=== PATIENT | male | born 1995 | race Caucasian/White ===

== ENCOUNTER 2022-01-21 04:08 | Emergency (ER) | payer SELFPAY ==
[2022-01-21 04:25] VITALS: BP 123/75; PULSE 84; RESP 22; TEMP 36.4; O2SAT 98; BMI 19.7
--- NOTE | 2022-01-21 04:44 | CRLHL7_ITS ---
For Patients: As a result of the Century Cures Act, medical imaging exams and procedure reports are released immediately into your electronic medical record. You may view this report before your referring provider. If you have questions, please contact your health care provider. INDICATION: RLQ pain TECHNIQUE: CT abdomen and pelvis without contrast COMPARISON: None. FINDINGS: Kidney/ureters: Kidneys are normal in caliber. No kidney or ureteral stones and no hydronephrosis. No sign of perinephric inflammation. Ureters are normal in caliber. The bladder is decompressed. Liver/gallbladder/bile ducts: The liver is normal in size, shape and attenuation. Gallbladder is normal without visualized stones or inflammation. No biliary dilatation. Spleen/pancreas/adrenal glands: The spleen, adrenal glands and pancreas are within normal limits. GI tract: No evidence of bowel obstruction. Large volume fecal retention throughout the colon most notably within the cecum and ascending colon. Suspected appendix appears nondistended and air-filled without adjacent inflammation to suggest acute appendicitis. Intraluminal hyperdensity which may represent an appendicolith. Abdominal wall/omentum/peritoneum: No free air or significant free fluid. No mass or inflammation. Lymph nodes: Mildly prominent mesenteric lymph nodes are nonspecific and may be reactive. Pelvis: Unremarkable pelvis. Lower chest: Unremarkable. IMPRESSION: Suspected appendix appears nondistended and air-filled without adjacent inflammation to suggest acute appendicitis. Intraluminal hyperdensity which may represent an appendicolith. No definite evidence for acute intra-abdominal process given limitations of lack of contrast enhancement. Large volume fecal retention throughout the colon most notably within the cecum and ascending colon. Mildly prominent mesenteric lymph nodes are nonspecific and may be reactive. Please note that all CT scans at this facility use dose modulation, iterative reconstruction, and/or weight-based dosing when appropriate to reduce radiation dose to as low as reasonably achievable. Dictated by Everardo Cruz MD @ 01/21/2022 6:04:10 AM (Electronically Signed)
[2022-01-21 05:23] LABS: Basophils Absolute Auto 0.01 K/uL (0.00-0.30); Basophils Percent Auto 0.1 % (0.0-3.0); Eosinophils Absolute Auto 0.19 K/uL (0.00-0.50); Eosinophils Percent Auto 1.9 % (0.0-7.0); Hematocrit 42.7 % (37.0-53.0); Hemoglobin* 14.4 gm/dL (13.5-17.5); Immature Granulocytes Abs Auto 0.01 K/uL (0.00-0.30); Immature Granulocytes Pct Auto 0.1 %; Mean Corpuscular HGB Conc 34 gm/dL (32-36); Mean Corpuscular Hemoglobin 29 pg (26-34); Mean Corpuscular Volume 87 fL (80-100); Neutrophils Percent Auto 77.9 % (42.0-72.0); Platelet Count* 204 K/uL (140-440); RDW Coefficient of Variation % 12.4 % (11.5-15.5); Red Blood Count 4.89 m/uL (4.30-5.90); White Blood Count* 9.86 K/uL (4.50-11.00)
[2022-01-21 05:25] LABS: Slide Review Reflex No
[2022-01-21 05:37] LABS: Albumin* 4.5 g/dL (3.3-5.0); Chloride* 104 mmol/L (96-114); Sodium* 140 mmol/L (135-149)
[2022-01-21 05:38] LABS: Potassium* 3.9 mmol/L (3.6-5.1)
[2022-01-21 05:40] LABS: Alanine Aminotransferase* 22 U/L (4-50); Alkaline Phosphatase* 69 U/L (40-150); Aspartate Amino Transferase* 23 U/L (12-35); Bilirubin Direct* 0.1 mg/dL (0.0-0.5); Bilirubin Total* 0.4 mg/dL (0.1-1.5); Blood Urea Nitrogen* 20 mg/dL (5-24); Carbon Dioxide* 30 mmol/L (20-32); Est. Creatinine Clearance* 105.96; Estimated Glomerular Filt Rate 108 ml/min; Glucose* 102 mg/dL (60-115); Total Protein* 6.9 g/dL (6.0-8.3)
[2022-01-21 05:41] LABS: Calcium* 8.9 mg/dL (8.4-10.6)
--- NOTE | 2022-01-21 06:14 | ED_ITS ---
HPI - General Adult General Date Seen: 01/21/22 Chief complaint: Abdominal Pain Stated complaint: intense abdomen pain/lower right Time Seen by Provider: 01/21/22 04:15 Source: patient and family Mode of arrival: ambulatory Limitations: no limitations History of Present Illness HPI narrative: Patient is a 26-year-old male who was in his usual state of good health when he went to bed last evening. He woke from sleep at around 4:00 a.m. in the morning with right lower quadrant abdominal pain. He describes this as a sharp pain. He ate at [employer] yesterday but has not had any acid reflux. There has been no fevers or chills. He did have what he refers to as the largest bowel movement of his life yesterday. Does not take any medications regularly. He has not taken anything for the pain since a came on. He did vomit once on the side of the road as they were driving in. Feels somewhat better after that. Related Data Home Medications Medication Instructions Recorded Confirmed No Known Home Medications 01/21/22 01/21/22 Allergies Allergy/AdvReac Type Severity Reaction Status Date / Time No Known Drug Allergies Allergy Verified 01/21/22 04:31 Review of Systems Narrative: Review of systems is as outlined above otherwise noted to be negative. [facility] Medical History (Updated 01/21/22 @ 06:08 by Emiliano Vickers MD) Patient denies medical problems Social History Smoking Status: Never smoker Do you use any of these nicotine containing products: None Second hand tobacco smoke exposure: No How often do you have a drink containing alcohol: never AUDIT-C Alcohol total score: 0 Non-prescribed substance use: denies use service: No Exam Narrative: Exam Narrative: Vitals noted. HEENT: Conjunctiva clear. Tympanic membranes are pearly white bilaterally. Posterior pharynx is clear without erythema or exudate. Neck is supple without adenopathy, thyromegaly, carotid bruit. Lungs: Clear to auscultation in all jean. No wheezes, rales, rhonchi. Heart: Regular rate and rhythm without murmur. Abdomen: Soft with normal bowel sounds. No palpable masses or organomegaly. He has some intermittent tenderness in the right lower quadrant and right flank. No guarding, rigidity, rebound. Extremities: No cyanosis or edema. Good distal pulses. Skin: No abnormalities noted of the exposed skin. Neurologic: Awake, alert, fully oriented. Neurologic exam is nonfocal. Const: Vital Signs, click to edit/add: Vital Signs - 24 hr 01/21/22 04:25 Temperature 97.5 F L Pulse Rate [Left P ulse Oximeter] 84 Respiratory Rate 22 Blood Pressure [Ri ght Upper Arm] 123/75 Pulse Oximetry 98 Oxygen Delivery Me thod Room Air Course Course Hospital Course: Patient seen and examined. Labs and CT of his abdomen are ordered. Reevaluation(s) Reevaluation #1: His labs have all returned with normal results. His CT shows significant constipation but no other acute findings. We discussed the best treatments for constipation and the fact that should be treated on a fairly long-term basis and not just acutely. Vital Signs Vital signs: Initial Vital Signs Temperature 97.5 F L 01/21/22 04:25 Temperature Source Temporal Artery Scan 01/21/22 04:25 Pulse Rate 84 01/21/22 04:25 Respiratory Rate 22 01/21/22 04:25 Blood Pressure 123/75 01/21/22 04:25 Blood Pressure Mean 91 01/21/22 04:25 Blood Pressure Position Semi-Fowlers 01/21/22 04:25 Pulse Oximetry 98 01/21/22 04:25 Oxygen Delivery Method 01/21/22 04:25 Vital Signs Temperature 97.5 F L 01/21/22 04:25 Pulse Rate 84 01/21/22 04:25 Respiratory Rate 22 01/21/22 04:25 Blood Pressure 123/75 01/21/22 04:25 Pulse Oximetry 98 01/21/22 04:25 Oxygen Delivery Method 01/21/22 04:25 Temperature 97.5 F L 01/21/22 04:25 Pulse Rate 84 01/21/22 04:25 Respiratory Rate 22 01/21/22 04:25 Blood Pressure 123/75 01/21/22 04:25 Pulse Oximetry 98 01/21/22 04:25 Oxygen Delivery Method 01/21/22 04:25 Medical Decision Making Lab Data Labs: Lab Results 01/21/22 01/21/22 Range/Units 05:05 05:05 WBC 9.86 (4.50-11.00) K/uL RBC 4.89 (4.30-5.90) m/uL Hgb 14.4 (13.5-17.5) gm/dL Hct 42.7 (37.0-53.0) % MCV 87 (80-100) fL MCH 29 (26-34) pg MCHC 34 (32-36) gm/dL RDW Coeff of Micheline 12.4 (11.5-15.5) % Plt Count 204 (140-440) K/uL Neut % (Auto) 77.9 H (42.0-72.0) % Lymph % (Auto) 14.0 L (20-44) % [place] % (Auto) 6.0 (0.0-11.0) % Eos % (Auto) 1.9 (0.0-7.0) % Baso % (Auto) 0.1 (0.0-3.0) % Neut # (Auto) 7.70 H (1.7-7.0) K/uL Lymph # (Auto) 1.40 (0.90-2.90) K/uL [place] # (Auto) 0.60 (0.00-0.90) K/UL Eos # (Auto) 0.19 (0.00-0.50) K/uL Baso # (Auto) 0.01 (0.00-0.30) K/uL Abs Immat Gran (auto) 0.01 (0.00-0.30) K/uL Imm/Tot Granulo (auto) 0.1 % Sodium 140 (135-149) mmol/L Potassium 3.9 (3.6-5.1) mmol/L Chloride 104 (96-114) mmol/L Carbon Dioxide 30 (20-32) mmol/L BUN 20 (5-24) mg/dL Creatinine 1.0 (0.5-1.5) mg/dL Estimated Creat Clear 105.96 Estimated GFR 108 ml/min Glucose 102 (60-115) mg/dL Calcium 8.9 (8.4-10.6) mg/dL Total Bilirubin 0.4 (0.1-1.5) mg/dL Direct Bilirubin 0.1 (0.0-0.5) mg/dL AST 23 (12-35) U/L ALT 22 (4-50) U/L Alkaline Phosphatase 69 (40-150) U/L Total Protein 6.9 (6.0-8.3) g/dL Albumin 4.5 (3.3-5.0) g/dL Discharge Plan Discharge Clinical Impression: Constipation Patient Disposition: Home, Self-Care Condition: Stable Additional Instructions: Start taking an [id number] stool softener twice daily and MiraLax one capful every day. Also take Benefiber 2 tsp every day. Follow-up in the clinic in 3-5 days for recheck. Prescriptions: No Action No Known Home Medications Follow Up/Referrals: Provider,Not a Local [Primary Care Provider] - Stand Alone Forms: [employer] Info Instructions
== END 2022-01-21 06:39 | disposition home or self-care (01) ==
PROVIDERS: Emergency Provider Family Medicine
DX: K59.00 Constipation, unspecified (principal)
CPT/HCPCS: 36415; 74176; 80048; 80076; 85025; 99282; 99283; 99284